=== PATIENT | male | born 1965 | race Two or more races ===

== ENCOUNTER 2019-05-03 10:25 | Emergency (ER) | payer OTHER ==
[~2019-05-03] VITALS: Ht 165.1 cm; Wt 86.2 kg
[2019-05-03 10:59] VITALS: BP 128/81
== END 2019-05-03 11:37 | disposition home or self-care (01) ==
LOC: ER 10:25
DX: K42.9 Umbilical hernia without obstruction or gangrene (principal)

== ENCOUNTER → 2019-07-10 | Day surgery (SDC) | payer OTHER ==
[2019-07-08 11:40] LABS: Basophils # (auto) 0.1 uL; Basophils % (auto) 0.8 % (0.0-2.0); Eosinophils # (auto) 0.3 uL; Eosinophils % (auto) 4.1 % (0.0-7.0); Hematocrit 46.7 % (41.0-53.0); Hemoglobin 15.8 g/dL (13.5-17.5); Lymphocytes % (auto) 26.3 % (10.0-50.0); Mean Corpuscular Hemoglobin 29.8 pg (28.0-32.0); Mean Corpuscular Hgb Conc. 33.9 g/dL (32.0-36.0); Monocytes # (auto) 0.7 uL; Monocytes % (auto) 9.4 % (0.0-12.0); Neutrophils # (auto) 4.6 uL; Neutrophils % (auto) 59.4 % (37.0-80.0); Nucleated Red Blood Cells % 0.1 %; Platelet Count (auto) 194 10^3/uL (140-450); Red Cell Distribution Width 14.2 % (11.8-14.3); White Blood Cell 7.7 10^3/uL (4.4-10.8)
[2019-07-08 12:00] LABS: Potassium 3.8 mmol/L (3.5-5.1)
[2019-07-08 12:05] LABS: Albumin 3.3 g/dL (3.4-5.0); BUN/Creatinine Ratio 9.9; Bilirubin, Total 0.2 mg/dL (0.2-1.0); Calcium 8.7 mg/dL (8.5-10.1); Total Protein 7.7 g/dL (6.4-8.2)
[2019-07-08 12:30] LABS: INR 0.96 (0.9-1.15); Partial Thromboplastin Time 27.9 sec (23.64-32.05)
[2019-07-08 13:37] LABS: Urine Bacteria NONE SEEN /hpf (None Seen); Urine Blood Negative /uL (Negative); Urine Specific Gravity 1.019 (1.001-1.035); Urine WBC 1 /hpf (0 - 3)
[~2019-07-10] VITALS: Ht 165.1 cm; Wt 87.1 kg
[~2019-07-10] MED LIST: BUPIVACAINE 0.25% INJ 50ML VIAL ONE; GLYCOPYRROLATE 0.2 MG/ML 1ML VIAL ONE; HYDROmorphone HCL 2 MG/ML VL IV PRN; LIDOCAINE 1% (LOCAL ANESTH.) PF 5ml SDV ONE; METOCLOPRAMIDE HCL 5MG/ml INJ 2ml VIAL ONE; MIDAZOLAM HCL 1MG/1ML-2 ML VIAL ONE; NALOXONE HCL 0.4 MG/ML VIAL IV PRN; NEOSTIGMINE 1 MG/ML INJ (10mg/10ML VIAL) ONE; ONDANSETRON HCL 4 MG/2 ML VIAL IV PRN; PROPOFOL 10 MG/ML 20 ML IV ONE; ROCURONIUM 10MG/ML 10ML VIAL IV ONE; STERILE WATER 10 ML ONE; SUCCINYLCHOLINE CHLORIDE 20 MG/ML 10ML VIAL IV ONE; ceFAZolin 1GM/50ML 50 ML IV ONE; ePHEDrine SULFATE 50 MG/ML AMP ONE; fentaNYL CITRATE 100 MCG/2 ML VL ONE; hydrALAZINE HCL 20 MG/ML VL IV PRN
[2019-07-10] MEDS: HYDROmorphone HCL 2 MG/ML VL IV PRN ×4 (13:13→14:00)
[2019-07-10 14:30] VITALS: BP 113/81
== END | disposition home or self-care (01) ==
LOC: SUR 08:06
PROVIDERS: ATTEND Surgery
DX: K42.0 Umbilical hernia with obstruction, without gangrene (principal); J44.9 Chronic obstructive pulmonary disease, unspecified; I10 Essential (primary) hypertension; F17.210 Nicotine dependence, cigarettes, uncomplicated; E66.9 Obesity, unspecified; G47.33 Obstructive sleep apnea (adult) (pediatric); E78.00 Pure hypercholesterolemia, unspecified; Z87.442 Personal history of urinary calculi; Z68.32 Body mass index [BMI] 32.0-32.9, adult
CPT/HCPCS: 36415; 49587; 80053; 81001; 85025; 85610; 85730; 88302; 93005; J0330; J0690; J1170; J2250; J2704; J2765; J3010; J3490; J3590; J7120

== ENCOUNTER 2020-04-08 10:35 | Inpatient (IN) | payer MEDICAID, OTHER ==
[~2020-04-08] VITALS: Ht 165.1 cm; Wt 98.7 kg
[2020-04-08 12:21] LABS: Basophils # (auto) 0.1 10 ^3/uL (0-0.2); Eosinophils # (auto) 0.3 10 ^3/uL (0-0.8); Hemoglobin 14.8 g/dL (13.5-17.5); Lymphocytes # (auto) 1.9 10 ^3/uL (0.4-5.4); Lymphocytes % (auto) 24.7 % (10.0-50.0); Mean Corpuscular Hemoglobin 29.5 pg (28.0-32.0); Mean Corpuscular Hgb Conc. 33.6 g/dL (32.0-36.0); Mean Corpuscular Volume 87.8 fL (80.0-100.0); Monocytes # (auto) 0.6 10 ^3/uL (0-1.3); Neutrophils # (auto) 4.8 10 ^3/uL (1.6-8.6); Neutrophils % (auto) 62.3 % (37.0-80.0); Nucleated Red Blood Cells % 0.1 %; Platelet Count (auto) 187 10^3/uL (140-450); Red Blood Cells 5.02 10^6/uL (4.5-5.90); Red Cell Distribution Width 14.5 % (11.8-14.3); White Blood Cell 7.7 10^3/uL (4.4-10.8)
[2020-04-08 12:48] LABS: Albumin 3.3 g/dL (3.4-5.0); BUN/Creatinine Ratio 13.9; Calcium 8.8 mg/dL (8.5-10.1); Magnesium 1.9 mg/dL (1.6-2.6); Potassium 3.6 mmol/L (3.5-5.1)
[2020-04-08 12:51] LABS: Bilirubin, Total 0.2 mg/dL (0.2-1.0); Total Protein 7.4 g/dL (6.4-8.2)
[2020-04-08 12:58] LABS: INR 0.96 (0.9-1.15); Partial Thromboplastin Time 26.9 sec (23.0-31.2)
[2020-04-08] MEDS ORDERED: ACETAMINOPHEN 500 MG TAB PO PRN (13:45)
[2020-04-08] MEDS ORDERED: MORPHINE SULF INJ 2 MG/ML SYRINGE 1ML IV PRN ×3 (13:45→15:30)
[2020-04-08] MEDS ORDERED: SODIUM CHLORIDE 0.9% 1,000 ML IV SCH (13:45)
[2020-04-08] MEDS ORDERED: cloNIDine HCL 0.1 MG TAB PO ONE (13:45)
[2020-04-08] MEDS ORDERED: NITROGLYCERIN 0.4 MG SL TAB SL PRN ×2 (13:45→15:30)
[2020-04-08] MEDS ORDERED: ALBUTEROL SULF HFA 90MCG INH 200DOSE IN SCH (14:00)
[2020-04-08] MEDS ORDERED: ZINC SULFATE 220mg CAP or TAB PO ONE (14:00)
[2020-04-08] MEDS ORDERED: ENOXAPARIN SOD 40 MG/0.4 ML SYRINGE SC ONE (14:00)
[2020-04-08] MEDS ORDERED: ASCORBIC ACID 1,000 MG TAB PO ONE (14:00)
[2020-04-08] MEDS ORDERED: CHOLECALCIFEROL (VITD3) 2,000 UNIT CAP PO ONE (14:00)
[2020-04-08] MEDS ORDERED: DexAMETHasone SOD PHOS 10MG/1ML VIAL INJ IV ONE (14:00)
[2020-04-08] MEDS ORDERED: LISI-648 PO (15:24)
[2020-04-08] MEDS ORDERED: HYDROcodone-ACET 5/325MG TAB PO PRN (15:30)
[2020-04-08] MEDS ORDERED: ALUM & MAG HYDROX-SIMETH LIQ(MAALOX) 30 ML PO PRN (15:30)
[2020-04-08] MEDS ORDERED: ONDANSETRON HCL 4 MG/2 ML VIAL IV PRN (15:30)
[2020-04-08] MEDS ORDERED: LORazepam 0.5 MG TAB PO PRN (15:30)
[2020-04-08] MEDS ORDERED: DOCUSATE SOD 100 MG CAP PO PRN (15:30)
[2020-04-08 15:54] LABS: CRP High Sensitivity 0.36 mg/dL (< 0.3)
[2020-04-08] MEDS ORDERED: LISINOPRIL 10 MG TAB PO ONE (16:00)
[2020-04-08] MEDS ORDERED: hydrALAZINE HCL 20 MG/ML VL IV PRN (16:00)
[2020-04-08 20:56] LABS: Urine Amorphous Crystal FEW /hpf (None Seen); Urine Bacteria FEW /hpf (None Seen); Urine Blood TRACE /uL (Negative); Urine Specific Gravity 1.019 (1.001-1.035); Urine WBC 4 /hpf (0 - 3)
[2020-04-08 21:10] LABS: Alcohol, Urine < 3.0 mg/dL (0-10); Amphetamine Screen, Urine POSITIVE (NEGATIVE); Barbiturate Scree,Urine NEGATIVE (NEGATIVE); Benzodiazephine Screen, Urine NEGATIVE (NEGATIVE); Cannabinoid Screen, Urine NEGATIVE (NEGATIVE); Cocaine Screen, Urine NEGATIVE (NEGATIVE); Opiate Scree,Urine NEGATIVE (NEGATIVE); Phencyclidine Screen, Urine NEGATIVE (NEGATIVE)
[2020-04-08] MEDS ORDERED: BUDESONIDE (INHALATION) 180 MCG IH IN SCH (22:00)
[2020-04-08] MEDS ORDERED: DOXYCYCLINE 100MG/250ML 250 ML IV SCH (22:00)
[2020-04-09 06:54] LABS: Basophils # (auto) 0 10 ^3/uL (0-0.2); Basophils % (auto) 0.2 % (0.0-2.0); Eosinophils # (auto) 0 10 ^3/uL (0-0.8); Hemoglobin 14.8 g/dL (13.5-17.5); Lymphocytes % (auto) 12.3 % (10.0-50.0); Mean Corpuscular Hgb Conc. 32.9 g/dL (32.0-36.0); Mean Corpuscular Volume 88.2 fL (80.0-100.0); Monocytes # (auto) 0.3 10 ^3/uL (0-1.3); Monocytes % (auto) 3.4 % (0.0-12.0); Neutrophils # (auto) 7.1 10 ^3/uL (1.6-8.6); Neutrophils % (auto) 84.1 % (37.0-80.0); Nucleated Red Blood Cells % 0.1 %; Platelet Count (auto) 185 10^3/uL (140-450); Red Cell Distribution Width 14.5 % (11.8-14.3); White Blood Cell 8.4 10^3/uL (4.4-10.8)
[2020-04-09 07:13] LABS: Albumin 3.3 g/dL (3.4-5.0); BUN/Creatinine Ratio 19.6; Calcium 8.5 mg/dL (8.5-10.1)
[2020-04-09 07:27] LABS: Bilirubin, Total 0.5 mg/dL (0.2-1.0); Total Protein 7.4 g/dL (6.4-8.2)
--- NOTE | 2020-04-09 08:16 | NUR ---
Telemetry admit from ER JERAD SANTIAGO admitted to Telemetry unit after SBAR received. Patient oriented to Rodrigo shoemaker RN, unit, room, bed, and unit policies regarding patient care and visiting hours. Patient now on continuous telemetry monitoring, tele box # 51 and telemetry reading on arrival to unit is 83 NSR. Patient placed on bedside oxygen, weighed by bedscale and encouraged to call if they need something. All questions and concerns addressed, patient verbalized understanding. Note: Patient noted to be aaox4, pleasant and cooperative. No c/o pain/ discomfort mad by patient at this time. Admission assessment done and charted. Plan of care, medications and treatments discussed with patient and patient verbalized understanding. Patient npo at this time for possible surgery today and patient is aware. Will continue to monitor patient.
[2020-04-09 08:32] VITALS: BP 140/100
[2020-04-09] MEDS ORDERED: CHOLECALCIFEROL (VITD3) 2,000 UNIT CAP PO SCH (10:00)
[2020-04-09] MEDS: ENOXAPARIN SOD 40 MG/0.4 ML SYRINGE SC SCH (10:00)
[2020-04-09] MEDS ORDERED: DexAMETHasone SOD PHOS 10MG/1ML VIAL INJ IV SCH (10:00)
[2020-04-09] MEDS ORDERED: ASCORBIC ACID 1,000 MG TAB PO SCH (10:00)
[2020-04-09] MEDS ORDERED: ZINC SULFATE 220mg CAP or TAB PO SCH (10:00)
[2020-04-09] MEDS: LISINOPRIL 10 MG TAB PO SCH ×2 (11:17→11:29)
--- NOTE | 2020-04-09 11:45 | NUR ---
Brought patient down to or for surgery per bed in a stable condition. Patient was npo since before patient was admitted to the floor. Report given to Anabell GARNER at pre op at bedside.
[2020-04-09] MEDS ORDERED: ceFAZolin 1GM/50ML 50 ML IV ONE (11:49)
[2020-04-09] MEDS ORDERED: BUPIVACAINE 0.25% INJ 50ML VIAL ONE (14:52)
[2020-04-09] MEDS ORDERED: LIDOCAINE 1% HCL (LOCAL ANESTH.) INJ 20ML MDV ONE (14:52)
[2020-04-09] MEDS ORDERED: fentaNYL CITRATE 100 MCG/2 ML VL ONE (14:57)
[2020-04-09] MEDS ORDERED: HYDROmorphone HCL 2 MG/ML VL ONE (14:57)
[2020-04-09] MEDS ORDERED: ONDANSETRON HCL 4 MG/2 ML VIAL ONE (14:58)
[2020-04-09] MEDS ORDERED: ROCURONIUM 10MG/ML 10ML VIAL IV ONE (14:58)
[2020-04-09] MEDS ORDERED: GLYCOPYRROLATE 0.2 MG/ML 1ML VIAL ONE ×2 (14:58→15:12)
[2020-04-09] MEDS ORDERED: LIDOCAINE 2% (LOCAL ANESTH.) PF 5ml SDV ONE (14:58)
[2020-04-09] MEDS ORDERED: KETOROLAC TROMETH 30 MG/ML 1ML VIAL ONE (14:58)
[2020-04-09] MEDS ORDERED: MIDAZOLAM HCL 1MG/1ML-2 ML VIAL ONE (14:58)
[2020-04-09] MEDS ORDERED: DexAMETHasone SOD PHOS 10MG/1ML VIAL INJ ONE (14:58)
[2020-04-09] MEDS ORDERED: PROPOFOL 10 MG/ML 20 ML IV ONE (14:58)
[2020-04-09] MEDS ORDERED: NEOSTIGMINE 1 MG/ML INJ (10mg/10ML VIAL) ONE (15:12)
[2020-04-09] MEDS ORDERED: SUCCINYLCHOLINE CHLORIDE 20 MG/ML 10ML VIAL IV ONE (15:58)
[2020-04-09] MEDS ORDERED: ONDANSETRON HCL 4 MG/2 ML VIAL IV PRN (16:30)
[2020-04-09] MEDS ORDERED: HYDROmorphone HCL 2 MG/ML VL IV PRN (16:30)
[2020-04-09] MEDS ORDERED: ALBUTEROL SULF 2.5 MG/0.5ML(0.5%) NEB SOLN NEB ONE (16:45)
--- NOTE | 2020-04-09 17:15 | NUR ---
Patient returned to room 286 A per bed from PACU s/p repair of recurring incarcerated umbilical hernia accompanied by PACU RNs. Report received from Yaz GARNER by phone prior to patient's return and at bedside.. Patient noted to be aaox4, was in no pain and was in no distress. Patient with O2@ 4L/nc, dressing in mid abdomen clean, dry and intact and with abdominal binder. Will continue to monitor patient.
--- NOTE | 2020-04-09 18:17 | NUR ---
PT PLACED ON CONTINUOUS POX MONITOR FOR 24 HOURS MONITORING. SPO2 92% ON 4L NC, HR 60, RR 16. NO RESPIRATORY DISTRESS NOTED. WILL CONTINUE TO MONITOR PT.
--- NOTE | 2020-04-09 20:00 | NUR ---
Opening Shift Note Assumed care of patient. Awake, alert and oriented x4. No S/S of distress/SOB or pain. Dressing to abdomen is c/d/i. Instructed on POC and to call for assist PRN. Bed locked, in lowest position, call light within reach, side rails up x2. Will continue to monitor for changes Q1hr and PRN.
[2020-04-09 22:00] VITALS: BP 115/75
[2020-04-10 05:00] VITALS: BP 110/72
--- NOTE | 2020-04-10 07:23 | NUR ---
Closing Shift Note No S/S of distress, SOB or pain at this time. Care endorsed to Rodrigo GARNER
--- NOTE | 2020-04-10 07:47 | NUR ---
OPENING SHIFT NOTE RECEIVED PATIENT AAOX4, UPSET THAT HE IS NPO EXCEPT ICE CHIPS HE WANTED TO EAT. PATIENT VOICED THE SAME COMPLAINT SINCE ADMISSION. EXPLAINED TO PATIENT THAT HE WAS NPO YESTERDAY BECAUSE HE WAS GOING TO HAVE SURGERY AND NPO EXCEPT ICE CHIPS HE JUST HAD SURGERY AND MD ORDERED THE DIET. 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 SHIFT ASSESSMENT DONE AND CHARTED. PLAN OF CARE, MEDICATIONS AND TREATMENTS DISCUSSED WITH PATIENT WITH TEPID RESPONSE FROM PATIENT WILL CONTINUE TO MONITOR PATIENT.
[2020-04-10 09:00] VITALS: BP 147/91
--- NOTE | 2020-04-10 10:18 | NUR ---
Respiratory note: PT ASSESSED FOR PRN MED NEB TX. PT IN NO CURRENT RESPIRATORY DISTRESS. CURRENT VITALS 98% SPO2, 72 HR, 15 RR. BS ARE CLR/DIM BILATERALLY. COMMUNICATED WITH PT TO INFORM NURSE IF PRN MED NEB TX NEEDED/SOB.
[2020-04-10] MEDS: LISINOPRIL 10 MG TAB PO SCH (10:31)
[2020-04-10] MEDS: ENOXAPARIN SOD 40 MG/0.4 ML SYRINGE SC SCH (10:32)
--- NOTE | 2020-04-10 10:43 | NUR ---
MD at Bedside MD made aware of patient not happy being NPO except ice chips. MD went to see patient and MD left new orders.
--- NOTE | 2020-04-10 12:58 | NUR ---
Patient tolerated full liquid diet.
[2020-04-10 13:00] VITALS: BP 128/80
--- NOTE | 2020-04-10 14:02 | NUR ---
Nutrition Assessment Notes Please refer to link for full assessment notes. Est Energy needs: 3424-5156 kcals (14-18 kcal/kgBW) Est Protein needs: 79-99 gms/day (0.8-1.0 gm/kgBW) Will continue to monitor and reassess prn. Addendum: 04/10/20 at [address] Amended: Links added.
[2020-04-10 14:32] VITALS: BP 128/80
--- NOTE | 2020-04-10 15:20 | NUR ---
DR. BARRIOS WAS IN TO SEE PATIENT AND MD REMOVED PATIENT'S SURGICAL SITE. AREA NOTED TO HAVE OLD DRAINAGE BUT NO ACTIVE BLEEDING ON THE SITE AND SAME LEFT OPEN TO AIR PER MD'S INSTRUCTION TO PATIENT.
--- NOTE | 2020-04-10 17:25 | NUR ---
Discharge instructions and prescriptions given as ordered. Encourage to follow up with PMD as instructed. All questions and concerns addressed. Patient verbalized understanding. Medication reconciliation form completed and copy given to patient. IV removed with catheter intact, pressure dressing applied. Telemetry unit returned to ICU. Patient taken to vehicle via wheelchair with all personal belongings, accompanied by staff and family member. No distress noted at time of departure.
== END 2020-04-10 17:25 | disposition home or self-care (01) | DRG 227 ==
LOC: ER 10:35 → TELE 10:36 → TELE-WESTW 04-09 08:16
PROVIDERS: ADMIT Hospitalist; ATTEND Internal Medicine
PROC: 0WQF0ZZ Repair Abdominal Wall, Open Approach (ICD-10-PCS; principal; 2020-04-09 14:56)
DX: K42.0 Umbilical hernia with obstruction, without gangrene (principal); I10 Essential (primary) hypertension; N20.0 Calculus of kidney; E66.01 Morbid (severe) obesity due to excess calories; E44.1 Mild protein-calorie malnutrition; E78.5 Hyperlipidemia, unspecified; F15.10 Other stimulant abuse, uncomplicated; F17.210 Nicotine dependence, cigarettes, uncomplicated; Z68.36 Body mass index [BMI] 36.0-36.9, adult; Z20.828 Contact with and (suspected) exposure to other viral communicable diseases; Z82.49 Family history of ischemic heart disease and other diseases of the circulatory system; K40.01 Bilateral inguinal hernia, with obstruction, without gangrene, recurrent; K76.0 Fatty (change of) liver, not elsewhere classified
CPT/HCPCS: 36415; 71045; 74176; 80053; 80061; 80307; 81001; 82728; 83036; 83605; 83615; 83690; 83735; 84443; 84484; 85025; 85379; 85610; 85730; 86141; 87040; 87086; 87426; 93005; 93306; 94640; 96361; 96365; 96366; 96372; 96375; G0378; J0330; J0690; J1100; J1885; J2001; J2250; J2405; J2704; J3490

== ENCOUNTER 2020-12-28 14:54 | Emergency (ER) | payer MEDICAID ==
[~2020-12-28] VITALS: Ht 165.1 cm; Wt 98.4 kg
[~2020-12-28 14:54] MED LIST changes: -BUPIVACAINE 0.25% INJ 50ML VIAL ONE; -GLYCOPYRROLATE 0.2 MG/ML 1ML VIAL ONE; -HYDROmorphone HCL 2 MG/ML VL IV PRN; -LIDOCAINE 1% (LOCAL ANESTH.) PF 5ml SDV ONE; +LISI-716 PO; -METOCLOPRAMIDE HCL 5MG/ml INJ 2ml VIAL ONE; -MIDAZOLAM HCL 1MG/1ML-2 ML VIAL ONE; -NALOXONE HCL 0.4 MG/ML VIAL IV PRN; -NEOSTIGMINE 1 MG/ML INJ (10mg/10ML VIAL) ONE; -ONDANSETRON HCL 4 MG/2 ML VIAL IV PRN; -PROPOFOL 10 MG/ML 20 ML IV ONE; -ROCURONIUM 10MG/ML 10ML VIAL IV ONE; -STERILE WATER 10 ML ONE; -SUCCINYLCHOLINE CHLORIDE 20 MG/ML 10ML VIAL IV ONE; -ceFAZolin 1GM/50ML 50 ML IV ONE; -ePHEDrine SULFATE 50 MG/ML AMP ONE; -fentaNYL CITRATE 100 MCG/2 ML VL ONE; -hydrALAZINE HCL 20 MG/ML VL IV PRN
[2020-12-28 15:28] LABS: Basophils # (auto) 0.1 10 ^3/uL (0-0.2); Basophils % (auto) 0.9 % (0.0-2.0); Eosinophils # (auto) 0.4 10 ^3/uL (0-0.8); Eosinophils % (auto) 4.1 % (0.0-7.0); Hematocrit 48.4 % (41.0-53.0); Hemoglobin 16.7 g/dL (13.5-17.5); Lymphocytes # (auto) 2.5 10 ^3/uL (0.4-5.4); Lymphocytes % (auto) 23.9 % (10.0-50.0); Mean Corpuscular Hgb Conc. 34.6 g/dL (32.0-36.0); Mean Corpuscular Volume 86.7 fL (80.0-100.0); Monocytes # (auto) 0.6 10 ^3/uL (0-1.3); Monocytes % (auto) 6.1 % (0.0-12.0); Neutrophils # (auto) 6.8 10 ^3/uL (1.6-8.6); Nucleated Red Blood Cells % 0.1 %; Red Blood Cells 5.58 10^6/uL (4.5-5.90); Red Cell Distribution Width 14.6 % (11.8-14.3); White Blood Cell 10.4 10^3/uL (4.4-10.8)
[2020-12-28 15:49] LABS: Alanine Aminotransferase 56 U/L (16-61); Albumin 3.2 g/dL (3.4-5.0); Anion Gap 6 (5-15); Aspartate Aminotransferase 27 U/L (15-37); BUN/Creatinine Ratio 7.1; Blood Urea Nitrogen 9 mg/dL (7-18); Calcium 8.4 mg/dL (8.5-10.1); Carbon Dioxide 26 mmol/L (21-32); Chloride 109 mmol/L (98-107); GFR African American 76 mL/min; GFR Non-African American 63 mL/min; Glucose 133 mg/dL (74-106); Potassium 3.9 mmol/L (3.5-5.1); Sodium 141 mmol/L (136-145)
[2020-12-28 15:54] LABS: Alkaline Phosphatase 93 U/L (45-117); Bilirubin, Total 0.2 mg/dL (0.2-1.0); Total Protein 8.1 g/dL (6.4-8.2)
[2020-12-28 15:58] LABS: Urine Bacteria FEW /hpf (None Seen); Urine Blood TRACE /uL (Negative); Urine Mucus FEW (None Seen); Urine Specific Gravity 1.025 (1.001-1.035); Urine WBC 6 /hpf (0 - 3)
[2020-12-28 17:22] VITALS: BP 131/81
== END 2020-12-28 17:26 | disposition home or self-care (01) ==
LOC: ER 14:54
DX: K42.9 Umbilical hernia without obstruction or gangrene (principal); I10 Essential (primary) hypertension; E78.5 Hyperlipidemia, unspecified; Z79.899 Other long term (current) drug therapy
CPT/HCPCS: 36415; 74176; 80053; 81001; 84484; 85025

== ENCOUNTER 2021-06-09 07:15 | Emergency (ER) | payer MEDICAID ==
[~2021-06-09] VITALS: Ht 165.1 cm; Wt 102.1 kg
[2021-06-09 07:28] VITALS: BP 148/108
== END 2021-06-09 14:41 | disposition left against medical advice (07) ==
LOC: ER 07:15
DX: M79.601 Pain in right arm (principal); R20.2 Paresthesia of skin; Z53.21 Procedure and treatment not carried out due to patient leaving prior to being seen by health care provider